=== PATIENT | male | born 1945 ===

== ENCOUNTER 2022-04-16 23:30 | Emergency (ER) | payer OTHER ==
[~2022-04-16] VITALS: Ht 182.9 cm; Wt 117.9 kg
[2022-04-16] MEDS ORDERED: COZAAR25 MG (23:56)
[2022-04-16] MEDS ORDERED: TOPROL XL25 M1 (23:57)
[2022-04-16] MEDS ORDERED: HYDROCHLOROTHIA25 MG (23:57)
== END 2022-04-17 10:30 | disposition designated cancer center or children's hospital (05) ==
LOC: ER 23:30
DX: I21.9 Acute myocardial infarction, unspecified (principal); I10 Essential (primary) hypertension